=== PATIENT | female | born 1975 | race Caucasian/White ===

== ENCOUNTER 2021-03-04 16:19 | Emergency (ER) | payer OTHER ==
[2021-03-04] MEDS ORDERED: IBUPROFEN600 MG PO (16:38)
[2021-03-04] MEDS ORDERED: CLINDAMYCIN HC300 MG PO (16:38)
== END 2021-03-04 17:00 | disposition home or self-care (01) ==
LOC: ER1 16:19
DX: K02.9 Dental caries, unspecified (principal)
CPT/HCPCS: 99283

== ENCOUNTER 2022-04-25 20:09 | Emergency (ER) | payer OTHER ==
[~2022-04-25 20:09] MED LIST: CLINDAMYCIN HC300 MG PO; IBUPROFEN600 MG PO
[2022-04-25 20:37] LABS: HEMOGLOBIN 14.2 gm/dl (12.3-15.3); RED BLOOD COUNT 4.42 M/UL (4.00-5.10); WHITE BLOOD COUNT 9.9 K/UL (4.5-11.0)
[2022-04-25 21:29] LABS: BUN/CREATININE RATIO 25 (0-10)
== END 2022-04-26 09:15 | disposition short-term general hospital (02) ==
LOC: ER1 20:09
PROVIDERS: Student in an Organized Health Care Education/Training Program
DX: S32.421A Displaced fracture of posterior wall of right acetabulum, initial encounter for closed fracture (principal); S01.112A Laceration without foreign body of left eyelid and periocular area, initial encounter; F17.210 Nicotine dependence, cigarettes, uncomplicated; Z88.0 Allergy status to penicillin; Z88.5 Allergy status to narcotic agent; W22.11XA Striking against or struck by driver side automobile airbag, initial encounter; V43.52XA Car driver injured in collision with other type car in traffic accident, initial encounter; Y92.410 Unspecified street and highway as the place of occurrence of the external cause
CPT/HCPCS: 70450; 71045; 71260; 72125; 73502; 73562; 73610; 80053; 82550; 82553; 84484; 85025; 90471; 90715; 93005; 96374; 96375; 99285; J1170; J1885; J2270; J2405; Q9967

== ENCOUNTER → 2022-05-07 | Outpatient (CLI) | payer OTHER | LOC: EXRD 08:30 | DX: M79.605 Pain in left leg (principal) | CPT/HCPCS: 93971 ==